=== PATIENT | male | born 1965 | race Caucasian/White ===

== ENCOUNTER 2025-05-17 01:35 | Inpatient (IN) | payer BC, MEDICARE ==
[~2025-05-17] VITALS: Ht 190.5 cm; Wt 139.7 kg
[2025-05-17] VITALS (11 sets, daily range): BP systolic 124–151; BP diastolic 78–94; PULSE 50–76; RESP 18–22; TEMP 97.6–98.3; O2SAT 94–100
[~2025-05-17 01:35] MED LIST: ANTIVERT12.5 MG PO; ASPIRIN ENTERI325 MG PO; CELEBREX100 MG PO; FAMOTIDINE20 MG PO; LISINOPRIL10 MG PO; LISINOPRIL20 MG PO; NITROSTAT0.4 MG SL; NORVASC5 MG PO; SIMVASTATIN20 MG PO
[2025-05-17 01:50] LABS: BASOPHILS % 0.2 % (0.0-1.0); EOSINOPHILS % 3.0 % (0.0-6.0); LYMPHOCYTES % 23.1 % (18.0-39.1); MONOCYTES % 12.5 % (4.4-11.3); NEUTROPHILS % 61.0 % (38.7-80.0); RED CELL DISTRIBUTION WIDTH 13.3 % (11.7-14.4)
[2025-05-17] MEDS: ASPIRIN 81 MG CHEW TAB PO ONE (01:54)
[2025-05-17 02:25] LABS: EST GLOMERULAR FILTRATION RATE 80.0 ML/MIN (>=60)
[2025-05-17] MEDS ORDERED: IOPAMIDOL 370 MG/ML 100 ML INFUS..BTL INJ ONE (02:41)
[2025-05-17] MEDS: SODIUM CHLORIDE 0.9% 1000ML 1,000 ML IV SCH (03:30)
[2025-05-17] MEDS ORDERED: LASIX20 MG PO (05:40)
[2025-05-17] MEDS: Morphine 4mg INJECTION 4 MG/ML INJ IV PRN (07:18)
[2025-05-17] MEDS: ONDANSETRON HCL INJ 2MG/ML 2ML 2 MG/ML VIAL IV PRN (07:20)
[2025-05-17] MEDS: FUROSEMIDE INJ 10 MG/ML 2 ML VIAL IV SCH (19:03)
[2025-05-17] MEDS: SIMVASTATIN 20 MG TAB PO SCH (20:27)
[2025-05-18] VITALS (7 sets, daily range): BP systolic 129–152; BP diastolic 82–99; PULSE 52–63; RESP 18–20; TEMP 97.4–98; O2SAT 95–100
[2025-05-18 06:00] LABS: BASOPHILS % 0.2 % (0.0-1.0); EOSINOPHILS % 1.9 % (0.0-6.0); LYMPHOCYTES % 18.6 % (18.0-39.1); MONOCYTES % 14.2 % (4.4-11.3); NEUTROPHILS % 64.8 % (38.7-80.0); RED CELL DISTRIBUTION WIDTH 13.5 % (11.7-14.4)
[2025-05-18 06:34] LABS: CHOL/HDL RATIO 4.5 (3.9-4.7)
[2025-05-18 06:36] LABS: EST GLOMERULAR FILTRATION RATE 103.0 ML/MIN (>=60)
[2025-05-18 07:09] LABS: LDL CHOLESTEROL 117.0 MG/DL (60-130)
[2025-05-18] MEDS: AMLODIPINE BESYLATE 5 MG TAB PO SCH (10:13)
[2025-05-18] MEDS ORDERED: SACUBITRIL/VALSARTAN 24MG/26MG 1 EA TAB PO SCH (17:00)
[2025-05-18] MEDS: FUROSEMIDE INJ 10 MG/ML 2 ML VIAL IV SCH (17:40)
[2025-05-18] MEDS: SACUBITRIL/VALSARTAN 24MG/26MG 1 EA TAB PO SCH (17:40)
[2025-05-18] MEDS: ACETAMINOPHEN/CODEINE 300MG - 30MG TAB PO PRN (19:54)
[2025-05-18] MEDS: ATORVASTATIN 40 MG TAB PO SCH (22:12)
[2025-05-19] VITALS: BP 129/109; PULSE 66; RESP 20; TEMP 97.9; O2SAT 99
[2025-05-19 07:37] LABS: BASOPHILS % 0.2 % (0.0-1.0); EOSINOPHILS % 0.6 % (0.0-6.0); LYMPHOCYTES % 11.9 % (18.0-39.1); MONOCYTES % 15.5 % (4.4-11.3); NEUTROPHILS % 71.4 % (38.7-80.0); RED CELL DISTRIBUTION WIDTH 13.2 % (11.7-14.4)
[2025-05-19 07:48] VITALS: BP 125/74; PULSE 55; RESP 18; TEMP 98.4; O2SAT 95
[2025-05-19 08:00] VITALS: BP 125/74; PULSE 55; RESP 18; TEMP 98.4; O2SAT 95
[2025-05-19 08:29] LABS: EST GLOMERULAR FILTRATION RATE 104.0 ML/MIN (>=60)
[2025-05-19] MEDS: SPIRONOLACTONE 25 MG TAB PO SCH (08:55)
[2025-05-19 12:00] VITALS: BP 131/89; PULSE 58; RESP 18; TEMP 98.2; O2SAT 97
[2025-05-19 12:30] VITALS: PULSE 70; RESP 18; O2SAT 95
[2025-05-19] MEDS ORDERED: ATORVASTATIN CA40 MG PO (14:50)
[2025-05-19] MEDS ORDERED: LASIX20 MG PO (20:07)
== END 2025-05-19 16:26 | disposition home or self-care (01) | DRG 291 ==
LOC: ER 01:39 → ERHOLD 02:32 → INTOOBSV 02:32 → MED/SURG2 03:43 → OBSVTOIN 05-18 19:39
PROVIDERS: ADMIT Internal Medicine; ATTEND Internal Medicine
DX: I11.0 Hypertensive heart disease with heart failure (principal); I50.43 Acute on chronic combined systolic (congestive) and diastolic (congestive) heart failure; R07.89 Other chest pain; F12.90 Cannabis use, unspecified, uncomplicated; R00.1 Bradycardia, unspecified; E66.01 Morbid (severe) obesity due to excess calories; J45.909 Unspecified asthma, uncomplicated; I45.10 Unspecified right bundle-branch block; M19.90 Unspecified osteoarthritis, unspecified site; E78.5 Hyperlipidemia, unspecified; Z88.0 Allergy status to penicillin; Z79.82 Long term (current) use of aspirin; Z68.38 Body mass index [BMI] 38.0-38.9, adult
CPT/HCPCS: 36415; 71045; 71260; 80048; 80053; 80061; 82550; 83690; 83735; 83880; 84484; 85025; 93005; 93306; 94799; 99284; G0378; J1938; J2270; J2405; J7030; Q9967